=== PATIENT | male | born 1980 | race Caucasian/White ===

== ENCOUNTER 2018-12-26 10:41 | Emergency (ER) | payer MEDICAID ==
[~2018-12-26] VITALS: Ht 182.9 cm; Wt 54.0 kg
[2018-12-26 11:05] VITALS: BP_SYST 143
[2018-12-26 12:22] VITALS: BP_SYST 143
== END 2018-12-26 12:20 | disposition home or self-care (01) ==
LOC: SED 10:41
DX: G44.209 Tension-type headache, unspecified, not intractable (principal); M79.10 Myalgia, unspecified site; R05 Cough; E11.9 Type 2 diabetes mellitus without complications; R03.0 Elevated blood-pressure reading, without diagnosis of hypertension
CPT/HCPCS: 36415; 82962; 86710; 99283

== ENCOUNTER 2019-05-07 16:59 | Emergency (ER) | payer MEDICAID ==
[~2019-05-07] VITALS: Ht 175.3 cm; Wt 77.1 kg
[2019-05-07 17:11] VITALS: BP_SYST 148
--- NOTE | 2019-05-07 17:12 | NUR ---
Patient to ER bed 5 to gown for evaluation. Side rails up. Assumed care.
--- NOTE | 2019-05-07 17:15 | NUR ---
Patient arrived via POV, AAOx4, and ambulatory with steady gait. Patient c/c left arm and left leg numbness for 3 days and new onset epigastric pain for 1 day. Patient states he has been feeling anxious and nervous for the past week, worse today. No relieving or exacerbating factors. Denies any fever, chills, nausea, vomiting, diarrhea, chest pain, shortness of breath, headache. Patient calm and cooperative. Will continue to follow up and monitor.
--- NOTE | 2019-05-07 17:17 | NUR ---
ER at bedside examining patient.
[2019-05-07] MEDS ORDERED: ALPRAZolam 0.25 MG TABLET PO ONE (17:45)
[2019-05-07 17:49] VITALS: BP_SYST 147
--- NOTE | 2019-05-07 17:49 | NUR ---
Patient given written and verbal discharge instructions and verbalizes understanding. ER MD discussed with patient the results and treatment provided. Patient in stable condition. ID arm band removed. Rx of Xanax given. Patient educated on pain management and to follow up with PMD. Pain Scale 0/10. Opportunity for questions provided and answered. Medication side effect fact sheet provided.
== END 2019-05-07 17:49 | disposition home or self-care (01) ==
LOC: SED 16:59
DX: F41.9 Anxiety disorder, unspecified (principal); R03.0 Elevated blood-pressure reading, without diagnosis of hypertension; E11.9 Type 2 diabetes mellitus without complications
CPT/HCPCS: 93005; 99283

== ENCOUNTER 2022-06-24 12:28 | Emergency (ER) | payer MEDICAID ==
[~2022-06-24] VITALS: Ht 185.4 cm; Wt 81.6 kg
[2022-06-24 12:41] VITALS: BP_SYST 128
--- NOTE | 2022-06-24 12:45 | NUR ---
Patient triaged and placed in waiting room. VSS and patient appears in no acute distress at this time. Accompanied by SELF, awaiting available bed, and MD notified of need for MSE.
[2022-06-24 13:28] LABS: BILIRUBIN,URINE NEGATIVE (NEGATIVE); BLOOD, URINE NEGATIVE (NEGATIVE); CLARITY/URINE CLEAR (CLEAR); COLOR,URINE YELLOW (YELLOW); GLUCOSE,URINE NEGATIVE (NEGATIVE); KETONES,URINE NEGATIVE (NEGATIVE); LEUKOCYTE ESTERASE ,URINE NEGATIVE (NEGATIVE); NITRITE, URINE NEGATIVE (NEGATIVE); PROTEIN URINE NEGATIVE (NEGATIVE); UROBILINOGEN,URINE 0.2 (0.2-1.0)
--- NOTE | 2022-06-24 13:33 | NUR ---
Placed in room 7 . Placed on playground equipment erector, blood pressure machine and pulse oximeter. To gown for exam. Side rails up. Report given to KAL ALLEN.
[2022-06-24] MEDS ORDERED: KETOROLAC TROMETHAMINE 30 MG VIAL IVP ONE (13:45)
[2022-06-24] MEDS ORDERED: NACL 0.9% 1,000 ML IV ONE (13:45)
[2022-06-24 14:02] LABS: BASOPHILS % (AUTO) 0.4 % (0.0-2.0); EOSINOPHILS % (AUTO) 0.6 % (0.0-4.0); HEMATOCRIT 42.1 % (36-54); LYMPHOCYTES # (AUTO) 1.4 K/uL (1.0-5.5); LYMPHOCYTES % (AUTO) 24.8 % (20.5-51.5); MEAN CORPUSCULAR VOLUME 86 fL (79.0-98.0); MONOCYTES # (AUTO) 0.5 K/uL (0.0-1.0); NEUTROPHILS # (AUTO) 3.8 K/uL (1.8-7.7); NEUTROPHILS % (AUTO) 66.2 % (40.0-70.0); PLATELET COUNT (AUTO) 202 K/uL (130-430); RED BLOOD CELL COUNT(AUTO) 4.93 MIL/uL (4.2-6.2); RED CELL DISTRIBUTION WIDTH 13.4 % (9.0-15.0); WHITE BLOOD COUNT (AUTO) 5.7 K/uL (4.8-10.8)
[2022-06-24 14:09] LABS: CALCIUM 9.1 mg/dL (8.4-11.0); CREATININE 1.12 mg/dL (0.55-1.30); POTASSIUM 4.1 mmol/L (3.5-5.1)
[2022-06-24 14:24] LABS: ALBUMIN 3.5 g/dL (3.4-4.8); TOTAL BILIRUBIN 0.4 mg/dL (0.0-1.0)
--- NOTE | 2022-06-24 15:00 | NUR ---
Pt bib self from home CC Dizziness R/T abdominal discomfort. Pt states past 4 days intermittant diarrhea. Lower abdominal discomfort of pressure not painful at this time. Pt notes stressful job and working in hot environment past week. Pt has no previous medical history.
[2022-06-24] MEDS ORDERED: MECLIZINE HCL 25 MG TABLET (ANITVERT) PO ONE (15:15)
[2022-06-24] MEDS ORDERED: DICY10SO PO (16:16)
--- NOTE | 2022-06-24 17:21 | NUR ---
Patient given written and verbal discharge instructions and verbalizes understanding. ER MD discussed with patient the results and treatment provided. Patient in stable condition. ID arm band removed. IV catheter removed intact and dressing applied, no active bleeding. Opportunity for questions provided and answered. Medication side effect fact sheet provided.
[2022-06-24 17:22] VITALS: BP_SYST 128
== END 2022-06-24 17:22 | disposition home or self-care (01) ==
LOC: SED 12:28
DX: K52.9 Noninfective gastroenteritis and colitis, unspecified (principal); R10.9 Unspecified abdominal pain; R42 Dizziness and giddiness; E11.9 Type 2 diabetes mellitus without complications; Z79.899 Other long term (current) drug therapy
CPT/HCPCS: 99283; 96360; 80053; 83690; 85025; 36415; 81003; J8597; J7030

== ENCOUNTER 2023-12-25 18:23 | Emergency (ER) | payer MEDICAID ==
[~2023-12-25] VITALS: Ht 185.4 cm; Wt 81.6 kg
[~2023-12-25 18:23] MED LIST: DICY10SO PO
[2023-12-25 18:37] VITALS: BP_SYST 126; PULSE 79; RESP 15; TEMP 97.6; O2SAT 99
[2023-12-25 19:11] LABS: INFLUENZA TYPE A Negative (NEGATIVE); INFLUENZA TYPE B NEGATIVE (NEGATIVE)
[2023-12-25 19:34] VITALS: BP_SYST 126; PULSE 79; TEMP 97.6; O2SAT 99
[2023-12-25 19:37] VITALS: RESP 18
== END 2023-12-25 19:34 | disposition home or self-care (01) ==
LOC: SED 18:23
DX: J06.9 Acute upper respiratory infection, unspecified (principal); R09.89 Other specified symptoms and signs involving the circulatory and respiratory systems; Z79.899 Other long term (current) drug therapy; Z20.822 Contact with and (suspected) exposure to COVID-19
CPT/HCPCS: 36415; 99283

== ENCOUNTER 2024-02-16 09:29 | Emergency (ER) | payer MEDICAID ==
[~2024-02-16] VITALS: Ht 185.4 cm; Wt 81.6 kg
[2024-02-16 09:31] VITALS: BP_SYST 126; PULSE 78; RESP 18; TEMP 97; O2SAT 97
[2024-02-16] MEDS: ONDANSETRON 4 MG ODT TAB PO ONE (10:41)
[2024-02-16] MEDS: KETOROLAC TROMETHAMINE 30 MG VIAL IM ONE (10:41)
[2024-02-16 11:51] LABS: ALBUMIN 3.2 g/dL (3.4-4.8); BILIRUBIN,DIRECT 0.1 mg/dL (0.0-0.3); CALCIUM 8.4 mg/dL (8.4-11.0); CREATININE 0.89 mg/dL (0.55-1.30); TOTAL BILIRUBIN 0.6 mg/dL (0.0-1.0); TOTAL PROTEIN, SERUM 6.9 g/dL (6.4-8.3)
[2024-02-16] MEDS ORDERED: TRAM50TA2 PO (12:13)
[2024-02-16] MEDS ORDERED: ONDA-8 TL (12:13)
[2024-02-16 12:22] VITALS: BP_SYST 116; PULSE 68; RESP 18; TEMP 97; O2SAT 98
== END 2024-02-16 12:22 | disposition home or self-care (01) ==
LOC: SED 09:29
DX: K52.9 Noninfective gastroenteritis and colitis, unspecified (principal); R10.13 Epigastric pain; R11.2 Nausea with vomiting, unspecified; E11.9 Type 2 diabetes mellitus without complications; Z79.899 Other long term (current) drug therapy
CPT/HCPCS: 99283; 80076; 80048; 36415; 96372; 82948; Q0162; J1885